=== PATIENT | female | born 1955 | race Caucasian/White ===

== ENCOUNTER → 2016-07-05 | Outpatient (CLI) | payer OTHER | LOC: LAB 10:56 | DX: E03.9 Hypothyroidism, unspecified (principal) | CPT/HCPCS: 36415; 84439; 84443 ==

== ENCOUNTER → 2016-10-14 | Outpatient (CLI) | payer OTHER | LOC: KOH-I 14:59 | DX: M54.5 Low back pain (principal); M25.551 Pain in right hip; M25.552 Pain in left hip; M47.896 Other spondylosis, lumbar region; Z90.49 Acquired absence of other specified parts of digestive tract | CPT/HCPCS: 72110; 73502 ==

== ENCOUNTER 2020-07-12 15:48 | Emergency (ER) | payer OTHER ==
[2020-07-12 17:09] LABS: HEMOGLOBIN 12.9 gm/dl (12.3-15.3); RED BLOOD COUNT 4.48 M/UL (4.00-5.10); WHITE BLOOD COUNT 7.5 K/UL (4.5-11.0)
[2020-07-12 17:39] LABS: BUN/CREATININE RATIO 20 (0-10)
[2020-07-12] MEDS ORDERED: MEDROL DOSEPAK 24 MG PO (18:26)
[2020-07-12] MEDS ORDERED: Voltaren Gel 1% TOP (18:26)
[2020-07-12] MEDS ORDERED: NORFLEX 100 MG100 MG PO (18:26)
== END 2020-07-12 18:34 | disposition home or self-care (01) ==
LOC: ER1 15:48
PROVIDERS: Physician Assistant Medical
DX: M25.511 Pain in right shoulder (principal); M54.2 Cervicalgia; E03.9 Hypothyroidism, unspecified; Z88.5 Allergy status to narcotic agent
CPT/HCPCS: 70490; 71045; 80053; 82550; 82553; 83874; 84439; 84443; 84484; 85025; 93005; 99284